=== PATIENT | female | born 1950 | race Caucasian/White ===

== ENCOUNTER → 2018-10-23 | Outpatient (CLI) | payer MEDICARE, BC ==
--- NOTE | 2018-10-24 13:05 | MM ---
Reason for exam: screening (asymptomatic). Last mammogram was performed 1 year and 2 months ago. History: Patient is postmenopausal. Benign excisional biopsy of the right breast, 1994. Physical Findings: A clinical breast exam by your physician is recommended on an annual basis and results should be correlated with mammographic findings. MG 3D Screening Mammo W/Cad Bilateral CC and MLO view(s) were taken. Prior study comparison: August 10, 2017, bilateral MG 3d screening mammo w/cad. February 03, 2016, bilateral MG screening mammo w CAD. There are scattered fibroglandular densities. There is chronic nodularity in the left breast posterior left MLO view. No significant changes when compared with prior studies. ASSESSMENT: Negative, BI-RAD 1 RECOMMENDATION: Routine screening mammogram of both breasts in 1 year.
== END | disposition home or self-care (01) ==
LOC: RADMAMWWP 16:55
PROVIDERS: ATTEND Family Medicine
DX: Z12.31 Encounter for screening mammogram for malignant neoplasm of breast (principal)
CPT/HCPCS: 77063; 77067

== ENCOUNTER 2020-02-15 21:24 | Inpatient (IN) | payer MEDICARE, BC ==
[2020-02-15] MEDS ORDERED: ASPIRIN 81 MG PO STA (21:50)
[2020-02-15] MEDS ORDERED: NITROGLYCERIN OINT 1 INCH/GM PACKET TOPICAL STA (21:50)
--- NOTE | 2020-02-15 21:52 | ED ---
Chest Pain HPI - General Chief Complaint: Chest Pain Stated Complaint: Chest Pain Time Seen by Provider: 02/15/20 21:37 Source: patient, RN notes reviewed Mode of arrival: wheelchair Limitations: no limitations - History of Present Illness Initial Comments: This is a 61-year-old female her prior history of heart attack with stents about 18 years ago states he had the onset over last 3-4 days of intermittent chest pain it seems be worse daily. Increases with walking or exertion. Day she had pain it was 8-9/10 severity is down to about 1 and 2 right now. She did take 81 mg aspirin this morning. She states the pain just hurts and she cannot describe it any other way. No nausea no vomiting no sweats no radiation. She states the pain is midsternal and feels similar to her prior episode many years ago again. MD Complaint: chest pain - Related Data Allergies Allergy/AdvReac Type Severity Reaction Status Date / Time No Known Allergies Allergy Verified 02/15/20 21:33 Review of Systems ROS Statement: Those systems with pertinent positive or pertinent negative responses have been documented in the HPI. ROS Other: All systems not noted in ROS Statement are negative. EKG Findings - EKG Results: EKG: interpreted by ERMD, sinus rhythm (Sinus rhythm rate is 70. RI interval 202, QRS 92 QT since QTC 420/453 possible inferior infarct of undetermined age also evidence of poor R-wave progression no acute ST-T wave changes however.) Past Medical History Past Medical History: Hyperlipidemia, Hypertension, Myocardial Infarction ([place]) History of Any Multi-Drug Resistant Organisms: None Reported Past Surgical History: Cholecystectomy, Heart Catheterization With Stent, Orthopedic Surgery Additional Past Surgical History / Comment(s): DnC Past Psychological History: No Psychological Hx Reported Smoking Status: Never smoker Past Alcohol Use History: None Reported Past Drug Use History: None Reported General Exam - General Exam Comments Initial Comments: This is a well-developed well-nourished awake alert oriented 3 female Limitations: no limitations General appearance: alert, in no apparent distress Head exam: Present: atraumatic, normocephalic, normal inspection Eye exam: Present: normal appearance, PERRL, EOMI. Absent: scleral icterus, conjunctival injection, periorbital swelling ENT exam: Present: normal exam, mucous membranes moist Neck exam: Present: normal inspection. Absent: tenderness, meningismus, lymphadenopathy Respiratory exam: Present: normal lung sounds bilaterally. Absent: respiratory distress, wheezes, rales, rhonchi, stridor Cardiovascular Exam: Present: regular rate, normal rhythm, normal heart sounds. Absent: systolic murmur, diastolic murmur, rubs, gallop, clicks GI/Abdominal exam: Present: soft, normal bowel sounds. Absent: distended, tenderness, guarding, rebound, rigid Extremities exam: Present: normal inspection, full ROM, normal capillary refill. Absent: tenderness, pedal edema, joint swelling, calf tenderness Back exam: Present: normal inspection Neurological exam: Present: alert, oriented X3, CN II-XII intact Psychiatric exam: Present: normal affect, normal mood Skin exam: Present: warm, dry, intact, normal color. Absent: rash Course Vital Signs 02/15/20 21:28 Temperature 97.5 F L Pulse Rate 71 Respiratory 16 Rate Blood Pressure 195/91 O2 Sat by Pulse 98 Oximetry - Reevaluation(s) Reevaluation #1: 02/15/20 22:59 Reevaluation patient is gone. Chest Pain MDM - MDM I did review the imaging and report no acute findings I did discuss the findings the patient family as well as with Dr. Cote. Patient will be admitted cardiology consultation. Critical Care Time Critical Care Time: Yes Critical Care Time: 31 minutes of critical care time which includes initial presentation with history physical labs x-rays several reevaluation the patient discussed with the admitting physician admission orders and documentation of the above Disposition Clinical Impression: Chest pain, Unstable angina pectoris Disposition: ADMITTED IP TO THIS [facility] Condition: Fair Referrals: Alexx Rock MD [Primary Care Provider] - 1-2 days
[2020-02-15 22:21] LABS: Basophils % (A) 1 %; Eosinophils # (A) 0.3 k/uL (0-0.7); Eosinophils % (A) 3 %; HCT 36.3 % (34.0-46.0); Lymphocytes # (A) 1.8 k/uL (1.0-4.8); Lymphocytes % (A) 23 %; MCH 32.5 pg (25.0-35.0); MCHC 33.1 g/dL (31.0-37.0); MCV 98.2 fL (80.0-100.0); Mean Platelet Volume 7.4; Monocytes # (A) 0.4 k/uL (0-1.0); Monocytes % (A) 5 %; Neutrophils % (A) 66 %; Platelet Count 321 k/uL (150-450); RBC 3.69 m/uL (3.80-5.40); RDW 12.2 % (11.5-15.5); WBC 7.6 k/uL (3.8-10.6)
[2020-02-15 22:36] LABS: Albumin 4.7 g/dL (3.5-5.0); Calcium 10.2 mg/dL (8.4-10.2); Magnesium 1.7 mg/dL (1.6-2.3); Total Bilirubin 0.3 mg/dL (0.2-1.3)
[2020-02-15 22:43] LABS: Potassium 3.7 mmol/L (3.5-5.1); Total Protein 7.5 g/dL (6.3-8.2)
--- NOTE | 2020-02-15 22:45 | XR ---
EXAMINATION TYPE: XR chest 2V DATE OF EXAM: 02/15/2020 COMPARISON: NONE HISTORY: Chest pain Heart and mediastinum are normal. Lungs are clear of infiltrate. There is no pleural effusion. Thora cic aorta is atheromatous. Bony thorax is intact. IMPRESSION: No active cardiopulmonary disease. Normal heart.
[2020-02-15 22:50] LABS: Partial Thromboplastin Time 24.6 sec (22.0-30.0); Prothrombin Time 10.4 sec (9.0-12.0)
[2020-02-15] MEDS ORDERED: HEPARIN SODIUM,PORCINE 5,000 UNIT/ML 1 ML VIAL IV ONE (23:06)
[2020-02-15] MEDS ORDERED: NITROGLYCERIN SL TABS 0.4 MG TAB SUBLINGUAL PRN (23:06)
[2020-02-15] MEDS ORDERED: HEPARIN SOD,PORK IN 0.45% NACL 25,000 UNIT in 0.45% NACL 1 250ML.BAG IV SCH (23:15)
[2020-02-16] MEDS: NITROGLYCERIN OINT 1 INCH/GM PACKET TOPICAL SCH ×3 (00:43→12:51)
[2020-02-16 06:43] LABS: Cholesterol 143 mg/dL (<200); HDL Cholesterol 55 mg/dL (40-60); LDL Cholesterol,Calculated 60 mg/dL (0-99); Triglycerides 140 mg/dL (<150)
[2020-02-16] MEDS ORDERED: ASPIRIN 325 MG TAB PO SCH (09:00)
[2020-02-16] MEDS ORDERED: ALPRAZolam 0.25 MG TAB PO PRN (10:01)
[2020-02-16] MEDS ORDERED: SODIUM CHLORIDE 0.9% 1,000 ML in EMPTY BAG 1 BAG IV ONE (10:01)
[2020-02-16] MEDS ORDERED: ASPIRIN 325 MG TAB PO STA (10:01)
[2020-02-16] MEDS ORDERED: NITROGLYCERIN SL TABS 0.4 MG TAB SUBLINGUAL PRN ×2 (10:01→14:12)
[2020-02-16] MEDS ORDERED: ALPRAZolam 0.5 MG TAB PO PRN (10:01)
[2020-02-16] MEDS ORDERED: ATORVASTATIN 80 MG TAB PO STA (10:01)
--- NOTE | 2020-02-16 10:23 | P.CRDCN ---
History of Present Illness Consult date: 02/16/20 Requesting physician: Stephan Cochran Reason for Consult (text): Chest Pain, unstable angina Chief complaint: chest pain, shortness of breath History of present illness: This is a pleasant 69-year-old female patient who follows with Dr. Joshi in the office. She has a history of CAD with prior RI and stents about 18 years ago, hypertension, hyperlipidemia. She is a nonsmoker. He presented to the emergency department with progressively worsening symptoms of chest pain and shortness of breath with minimal activity. Symptoms initially began around early November, prior to COVID-19 restrictions being placed. This has progressively been getting worse and occurring with less and less activity. Symptoms are similar to what she experienced with her RI many years ago but at that time she did not have chest discomfort only shortness of breath. Chest x- ray on admission showed no active cardiopulmonary disease, normal heart. EKG on admission shows sinus rhythm, evidence of prior RI and T-wave inversion in leads 3 and aVF. Laboratory values were reviewed and showed a white blood cell count of 7600, hemoglobin 12.0, platelet count 321, potassium 3.7, BUN 27, creatinine 0.95, NT proBNP of 414 and troponins of 0.018 and 0.051. Blood pressure has been elevated she is afebrile. She verbalizes having vague discomfort Tonight but this morning is feeling well. She's been initiated on a heparin drip and has nitro paste in place. She does complain of a headache. She denies any complaints of dizziness or lightheadedness. Complains of very occasional palpitations in the past. Past Medical History Past Medical History: Hyperlipidemia, Hypertension, Myocardial Infarction (RI) Last Myocardial Infarction Date:: 2001 History of Any Multi-Drug Resistant Organisms: None Reported Past Surgical History: Cholecystectomy, Heart Catheterization With Stent, Orthopedic Surgery Additional Past Surgical History / Comment(s): DnC Date of Last Stent Placement:: 2001 Past Psychological History: No Psychological Hx Reported Smoking Status: Never smoker Past Alcohol Use History: None Reported Past Drug Use History: None Reported Medications and Allergies Allergies Allergy/AdvReac Type Severity Reaction Status Date / Time No Known Allergies Allergy Verified 02/15/20 21:33 Physical Exam Vitals: Vital Signs Temp Pulse Pulse Resp BP BP BP 02/16/20 08:10 97.4 F L 80 14 156/84 02/16/20 03:37 98 F 79 15 166/81 02/16/20 00:00 98.3 F 69 17 179/86 02/15/20 23:51 78 18 159/70 02/15/20 23:06 02/15/20 23:00 70 17 172/77 02/15/20 21:28 97.5 F L 71 16 195/91 Pulse Ox 02/16/20 08:10 98 02/16/20 03:37 97 02/16/20 00:00 98 02/15/20 23:51 99 02/15/20 23:06 99 02/15/20 23:00 97 02/15/20 21:28 98 Intake and Output 02/15/20 02/16/20 02/16/20 22:59 06:59 14:59 Intake Total 57.915 Balance 57.915 Intake: Intake, IV Titration 57.915 Amount Heparin Sod,Pork in 0.45% 57.915 NaCl 25,000 unit In 0.45 % NaCl 1 250ml.bag @ 12 UNITS/KG/HR 8.709 mls/hr IV .Q24H [facility] Rx#: [id number] Oral 0 Other: Voiding Method Toilet # Voids 1 Weight 72.575 kg 75.795 kg PHYSICAL EXAMINATION: This is a 69-year-old female in no apparent distress at the time of my examination. VITAL SIGNS: Blood pressure 156/84, heart rate 80, respirations 14, temp 97.4 degrees Fahrenheit. Patient is 98% on room air. HEENT: Head is atraumatic, normocephalic. Pupils are equal, round. Sclerae anicteric. Conjunctivae are clear. Mucous membranes of the mouth are moist. Neck is supple. There is no elevated jugular venous pressure. No carotid bruit is heard. CHEST EXAMINATION: Lungs are clear to auscultation. No chest wall tenderness is noted on palpation or with deep breathing. HEART EXAMINATION: Heart regular regular, positive S1 and S2. No S3. No S4. No clicks, rubs or murmurs. ABDOMEN: Soft, nontender. Bowel sounds are heard. No organomegaly noted. EXTREMITIES: 2+ peripheral pulses with no evidence of peripheral edema and no calf tenderness noted. NEUROLOGIC EXAMINATION: Patient is awake, alert and oriented x3. Results 02/15/20 22:02 02/15/20 22:02 Cardiac Enzymes 02/15/20 02/15/20 02/16/20 Range/Units 22:02 22:02 04:08 AST 32 (14-36) U/L Troponin I 0.018 0.051 H* (0.000-0.034) ng/mL Coagulation 02/15/20 02/16/20 Range/Units 22:02 05:46 PT 10.4 (9.0-12.0) sec APTT 24.6 79.8 H (22.0-30.0) sec Lipids 02/16/20 Range/Units 05:46 Triglycerides 140 (<150) mg/dL Cholesterol 143 (<200) mg/dL HDL Cholesterol 55 (40-60) mg/dL CBC 02/15/20 Range/Units 22:02 WBC 7.6 (3.8-10.6) k/uL RBC 3.69 L (3.80-5.40) m/uL Hgb 12.0 (11.4-16.0) gm/dL Hct 36.3 (34.0-46.0) % Plt Count 321 (150-450) k/uL Comprehensive Metabolic Panel 02/15/20 Range/Units 22:02 Sodium 137 (137-145) mmol/L Potassium 3.7 (3.5-5.1) mmol/L Chloride 101 (98-107) mmol/L Carbon Dioxide 28 (22-30) mmol/L BUN 27 H (7-17) mg/dL Creatinine 0.95 (0.52-1.04) mg/dL Glucose 136 H (74-99) mg/dL Calcium 10.2 (8.4-10.2) mg/dL AST 32 (14-36) U/L ALT 22 (4-34) U/L Alkaline Phosphatase 82 (38-126) U/L Total Protein 7.5 (6.3-8.2) g/dL Albumin 4.7 (3.5-5.0) g/dL Current Medications Generic Name Dose Route Start Last Admin Trade Name Freq PRN Reason Stop Dose Admin Aspirin 325 mg 02/16/20 09:00 Aspirin PO DAILY PAT Heparin Sodium/Sodium Chloride 250 mls @ 8.709 mls/hr 02/15/20 23:15 02/16/20 06:23 25,000 unit/ Sodium Chloride IV 10 units/kg/hr .Q24H PAT 7.258 mls/hr Titration Protocol 12 UNITS/KG/HR Nitroglycerin 0.4 mg 02/15/20 23:06 Nitrostat SUBLINGUAL Q5M PRN Chest Pain Nitroglycerin 1 inch 02/16/20 00:00 02/16/20 05:21 Nitro-Bid Oint TOPICAL 1 inch Q6HR PAT Administration Intake and Output 02/15/20 02/16/20 02/16/20 22:59 06:59 14:59 Intake Total 57.915 Balance 57.915 Intake: Intake, IV Titration 57.915 Amount Heparin Sod,Pork in 0.45% 57.915 NaCl 25,000 unit In 0.45 % NaCl 1 250ml.bag @ 12 UNITS/KG/HR 8.709 mls/hr IV .Q24H [facility] Rx#: [id number] Oral 0 Other: Voiding Method Toilet # Voids 1 Weight 72.575 kg 75.795 kg 02/15/20 22:02 02/15/20 22:02 EKG Interpretations (text) Sinus rhythm with evidence of prior RI in the inferior and anterior leads, T- wave inversion in leads 3 and aVF Assessment and Plan Assessment: #1 NSTEMI with symptoms of chest pain and dyspnea on exertion, troponin 0.018 and 0.051 #2 history of CAD with prior RI and stents #3 hypertension, uncontrolled #4 hyperlipidemia adequately controlled Plan: From wheel filler perspective, we'll obtain a 2-D echo with Doppler to assess cardiac structure and function. We will schedule the patient for cardiac catheterization for further evaluation. The risks, benefits and alternative therapies for the above-mentioned procedure and for both sedation/analgesia as well as necessary blood product administration, if indicated, as they pertain to this patient have been discussed with the patient. The patient has indicated understanding and acceptance of the risks and procedures discussed. Questions have been answered appropriately and she is agreeable to move forward with the above stated procedure. Further recommendations to follow. FIRST HELPER note has been reviewed, I agree with a documented findings and plan of care. Patient was seen and examined.
[2020-02-16] MEDS ORDERED: IV FLUID CONTINUATION 1,000 ML IV ONE (12:43)
[2020-02-16] MEDS ORDERED: LIDOCAINE 1% INJ 10MG/ML (20 ML MDV) ONE (12:50)
[2020-02-16] MEDS ORDERED: HEPARIN SODIUM 1,000 UN/ML (10ML VL) ONE (12:50)
[2020-02-16] MEDS ORDERED: VERAPAMIL 2.5 MG/ML 2 ML AMP ONE (12:50)
[2020-02-16] MEDS ORDERED: fentaNYL (PF) 50 MCG/ML 2 ML AMP ONE (12:50)
[2020-02-16] MEDS ORDERED: fentaNYL (PF) 50 MCG/ML 2 ML AMP IV ONE (13:20)
[2020-02-16] MEDS: MIDAZOLAM 2 MG/2 ML VIAL IV ONE ×2 (13:23→13:30)
[2020-02-16] MEDS ORDERED: LIDOCAINE 1% INJ 10MG/ML (20 ML MDV) SQ ONE (13:24)
[2020-02-16] MEDS ORDERED: VERAPAMIL SYRINGE (5 MG/10 ML) INTRAARTER ONE ×2 (13:26→13:27)
[2020-02-16] MEDS ORDERED: TICAGRELOR 90 MG TAB ONE (13:40)
[2020-02-16] MEDS ORDERED: BIVALIRUDIN BOLUS 250 MG/50 ML IV ONE (13:40)
[2020-02-16] MEDS ORDERED: BIVALIRUDIN 250 MG in SODIUM CHLORIDE 0.9% 39 ML IV ONE (13:42)
[2020-02-16] MEDS ORDERED: TICAGRELOR 90 MG TAB PO ONE (13:42)
[2020-02-16] MEDS: NITROGLYCERIN 1000MCG/10ML SYRINGE INTRACORON ONE ×3 (13:45→14:03)
[2020-02-16] MEDS ORDERED: IOPAMIDOL-370 125ML BTL INJ ONE ×2 (13:51→14:00)
[2020-02-16] MEDS ORDERED: MAG HYDROX/AL HYDROX/SIMETH 30 ML CUP PO PRN (14:12)
[2020-02-16] MEDS ORDERED: ZOLPIDEM 5 MG TAB PO PRN (14:12)
[2020-02-16] MEDS ORDERED: RX INFO: IV CONTRAST WAS GIVEN 1 EACH MISC MISCELLANE PRN (14:12)
[2020-02-16] MEDS ORDERED: ATROPINE SULFATE 0.1 MG/ML 10ML SYRINGE IV PRN (14:12)
[2020-02-16] MEDS ORDERED: SODIUM CHLORIDE 0.9% 1,000 ML IV SCH (14:15)
[2020-02-16] MEDS: HYDROCHLOROTHIAZIDE 25 MG TAB PO SCH (14:47)
[2020-02-16] MEDS: EZETIMIBE 10 MG TAB PO SCH (15:04)
[2020-02-16] MEDS: VALSARTAN 160 MG TAB PO SCH (15:04)
--- NOTE | 2020-02-16 16:17 | ECHOF ---
Referral Reason:Chest Pain MEASUREMENTS -------- HEIGHT: 165.1 cm WEIGHT: 75.7 kg BP: 156/84 IVSd: 1.2 cm (0.6 - 1.1) LVIDd: 3.5 cm (3.9 - 5.3) LVPWd: 1.2 cm (0.6 - 1.1) IVSs: 1.5 cm LVIDs: 2.4 cm LVPWs: 1.6 cm RVIDd: 3.2 cm (< 3.3) LAESV Index (A-L): 33.69 ml/m Ao Diam: 2.7 cm (2.0 - 3.7) AV Cusp: 1.8 cm (1.5 - 2.6) EPSS: 0.1 cm MV E Best: 0.59 m/s MV DecT: 218 ms MV A Best: 0.79 m/s MV E/A Ratio: 0.75 RAP: 5.00 mmHg RVSP: 16.63 mmHg MV EF SLOPE: 49.48 mm/s (70 - 150) MV EXCURSION: 12.97 mm (> 18.000) FINDINGS -------- Sinus rhythm. This was a technically adequate study. The left ventricular size is normal. There is mild concentric left ventricular hypertrophy. Overa ll left ventricular systolic function is low-normal with, an EF between 50 - 55 %. The diastolic fi lling pattern is normal for the age of the patient {E/E'}. The right ventricle is normal in size. LA is midly dilated 29-33ml/m2. The right atrial size is normal. Interatrial and interventricular septum intact. There is mild aortic valve sclerosis without stenosis. Trace to mild aortic regurgitation. Mild mitral annular calcification present. Mild mitral regurgitation is present. Mild tricuspid regurgitation present. There is no evidence of pulmonary hypertension. The right v entricular systolic pressure, as measured by Doppler, is 16.63mmHg. There is no pulmonic regurgitation present. The aortic root size is normal. IVC Not well visulized. There is no pericardial effusion. CONCLUSIONS -------- 1. Sinus rhythm. 2. There is mild concentric left ventricular hypertrophy. 3. Overall left ventricular systolic function is low-normal with, an EF between 50 - 55 %. 4. The diastolic filling pattern is normal for the age of the patient {E/E'} 5. LA is midly dilated 29-33ml/m2. 6. There is mild aortic valve sclerosis without stenosis. 7. Trace to mild aortic regurgitation. 8. Mild mitral annular calcification present. 9. Mild mitral regurgitation is present. 10. Mild tricuspid regurgitation present. 11. There is no evidence of pulmonary hypertension. 12. There is no pericardial effusion. FLIGHT SIMULATOR TEACHER: Latasha Angeles RDCS
--- NOTE | 2020-02-16 17:22 | CC ---
CARDIAC CATHETERIZATION REPORT Ms. Aguilera is a 69-year-old female with a known history of coronary artery disease, status post stenting of her RCA in 2001 who presented with symptoms of chest discomfort and evidence of non ST-segment elevation myocardial infarction. In view of that, recommendation made regarding cardiac catheterization. The procedures, risks, and complication were discussed with the patient who is in full understanding and agreement. PROCEDURE: Patient was brought to the cath lab tech in the fasting semi-sedated state after receiving fentanyl and Benadryl and achieving moderate conscious sedated state. Using Xylocaine anesthesia and Seldinger technique, a 6-Palauan sheath was introduced in the right radial artery. Selective right and left coronary angiography performed using 5-Palauan 3.5 bend right and left Kavita catheter. Multiple views of the coronary artery including hemiaxial views were obtained. The right Kavita was used to cross the aortic valve and pressures were calculated. Following that, catheters were removed, images were reviewed. FINDINGS: LEFT MAIN: This is a large-sized vessel trifurcating in the left circumflex, ramus intermedius and left circumflex. Left main coronary artery has no evidence of high- grade stenosis/ LEFT ANTERIOR DESCENDING ARTERY: This vessel is moderate in caliber, tapers down distal third. Gives rise to a proximal diagonal branch. The proximal left anterior descending artery has intimal disease of 30-40%. The rest of the vessel has no high- grade stenosis. LEFT CIRCUMFLEX: This is a small nondominant vessel giving rise to one obtuse marginal branch that is quite tortuous but has no evidence of high-grade stenosis. RAMUS INTERMEDIUS: This vessel is moderate in caliber and has no evidence of high- grade stenosis. RIGHT CORONARY ARTERY: This vessel is large in caliber, dominant, bifurcating in distal PDA and posterolateral segment branches. The stented segment of the proximal right coronary artery is patent. There is about 20-30% plaque. The distal RCA prior to the bifurcation has a 99% stenosis haziness and slow flow in the PDA and the PLV. The rest of the vessel has mild intimal disease without any evidence of high-grade stenosis. COLLATERALS: Collateral from the left coronary system toward the right PDA. LEFT VENTRICULOGRAM: Left ventriculogram was not performed. HEMODYNAMICS: There was no gradient across the aortic valve. The left ventricular end-diastolic pressure was 12-14 mmHg. CONCLUSION: 1. Subtotally occluded distal right coronary artery. 2. Mild to moderate disease in the proximal LAD. 3. Patent stent in the proximal RCA. RECOMMENDATION: In view of the finding and anatomy, I recommend proceeding with angioplasty and stenting of the RCA. The procedures, risks, and complication were discussed with the patient who is in full understanding and agreement. MMNILDAL / IJN: [id number] /
--- NOTE | 2020-02-16 17:27 | PTCA ---
PERCUTANEOUSTRANS CORORONARY ANGIOGRAPHY Mrs. Aguilera is a 69-year-old female with a known history of coronary artery disease who presented with non ST-segment elevation myocardial infarction, was found to have subtotally occluded distal right coronary artery. In view of that, recommendation regarding angioplasty and stenting, the procedures, risks, and complication were discussed with the patient who was in full understanding and agreement. PROCEDURE: A 6-Andorran FR4 guiding catheter was introduced into the system after cannulating the right coronary artery and a 0.014 balanced medium weight J-wire was advanced across the lesion, positioned distally. Then a 2.5 x 12 mm Trek balloon was advanced and multiple inflations maximum of 10 atmospheres were done. Following that the balloon was removed and an PAULINE catheter was introduced and one run was performed was removing a white thrombotic material. Following that, a 3.5 x 23 mm Xience [place] stent was advanced, deployed and postdilated at 16 atmospheres. Following that, the balloon was removed and a 3.75 x 15 mm NC Trek balloon was advanced and one inflation at 14 atmospheres was done. After the last inflation, after appropriate wait, the balloon and the guidewire were withdrawn back in the guiding catheter. Images were obtained and repeated. Those images reveal stable successful stenting. At that point, the guiding catheter, the balloon and the guidewire were removed. The sheath was removed. Hemostasis was obtained with deployment of a TR band. There was no immediate complication. Patient was returned to the room in stable condition. Of note, the patient had chest discomfort and EKG changes that improved at the end procedure. She received Angiomax per protocol as well as oral loading dose of Brilinta. RESULTS: Successful stenting of the distal right coronary artery with reduction of stenosis from 99% to 0%. RECOMMENDATION: Patient will be continued on aspirin, Brilinta, beta blockers and statin. The importance of dual antiplatelet treatment were discussed with the patient her family and they are in full understanding and agreement. DURATION OF PROCEDURE: 44 minutes . MMODL / IJN: [id number] /
[2020-02-16] MEDS: METOPROLOL TARTRATE 50 MG TAB PO SCH ×2 (17:31→20:11)
--- NOTE | 2020-02-16 19:41 | P.HPIM ---
History of Present Illness H&P Date: 02/16/20 Chief Complaint: chest pain History of presenting complaint: This is a pleasant 69-year-old patient of Dr. Rock. Also follows with automat watcher Dr. Joshi. Chronic stable medical conditions include hypertension, hyperlipidemia, for about a week patient noticed that she was having central chest pressure. Mainly with activity. Better with rest. Does not radiate to the neck or arm. No dizziness no lightheadedness. She does notice that she gets short of breath with the episodes. Feels a bit weak tired rundown. When she presented here the troponin started to go up. Had some associated EKG changes in inferior leads. This was taken to the cardiac [facility] earlier today and underwent stenting to the right coronary artery. Review of systems: GEN.: None EYES: None HEENT: None NECK: None RESPIRATORY: None CARDIOVASCULAR: As above GASTROINTESTINAL: None GENITOURINARY: None MUSCULOSKELETAL: None LYMPHATICS: None HEMATOLOGICAL: None PSYCHIATRY: None NEUROLOGICAL: None Past medical history to include: Coronary artery disease with stent, hyperlipidemia, hypertension Social history: Lives with her . No history of smoking or alcohol. Family history: Noncontributory to presentation Physical examination: VITAL SIGNS: 97.8, 82, 16, 147/74, 98% on room air GENERAL: BMI 27.8, laying in bed, comfortable. EYES: Pupils equal. Conjunctiva normal. HEENT: External appearance of nose and ears normal, oral cavity grossly normal. NECK: JVD not raised; masses not palpable. HEART: First and second heart sounds are normal; no edema. LUNGS: Respiratory rate normal; clear to auscultation. ABDOMEN: Soft, nontender, liver spleen not palpable, no masses palpable. PSYCH: Alert and oriented x3; mood and affect normal. NEUROLOGICAL: Cranial nerves grossly intact; no facial asymmetry, power and sensation grossly intact. LYMPHATICS: No lymph nodes palpable in the axilla and neck INVESTIGATIONS, reviewed in the clinical context: White count 7.6 hemoglobin 12 platelets 321 potassium 3.7 creatinine 0.95 Troponin I 0.018, 0.051, 0.083 EKG tracing personally reviewed by me-shows flipped T waves in inferior leads Chest x-ray film personally reviewed by me-mild calcification aortic knuckle otherwise lung rose clear LDL 60 Assessment: -Acute non-Q-wave CT -Cardiac catheterization with stenting to the RCA -Known coronary artery disease a prior history of stent in 2001 -Essential hypertension -Hyperlipidemia Plan: Coronary intervention as above. Patient currently in aspirin and Lipitor's Lopressor., Diovan. Care was discussed with the patient. Questions were answered. Past Medical History Past Medical History: Hyperlipidemia, Hypertension, Myocardial Infarction (CT) Last Myocardial Infarction Date:: 2001 History of Any Multi-Drug Resistant Organisms: None Reported Past Surgical History: Cholecystectomy, Heart Catheterization With Stent, Orthopedic Surgery Additional Past Surgical History / Comment(s): DnC Date of Last Stent Placement:: 2001 Past Psychological History: No Psychological Hx Reported Smoking Status: Never smoker Past Alcohol Use History: None Reported Past Drug Use History: None Reported Medications and Allergies Home Medications Medication Instructions Recorded Confirmed Type Ezetimibe/Simvastatin [Vytorin 1 tab PO DAILY 02/16/20 02/16/20 History 10-80 mg] Loratadine [Claritin] 10 mg PO DAILY 02/16/20 02/16/20 History Metoprolol Tartrate [Lopressor] 50 mg PO TID 02/16/20 02/16/20 History Valsartan/Hydrochlorothiazide 1 tab PO DAILY 02/16/20 02/16/20 History [Valsartan-Hctz 160-25 mg Tab] Allergies Allergy/AdvReac Type Severity Reaction Status Date / Time No Known Allergies Allergy Verified 02/16/20 10:38 Physical Exam Vitals: Vital Signs Temp Pulse Pulse Resp BP BP BP 02/16/20 08:10 97.4 F L 80 14 156/84 02/16/20 03:37 98 F 79 15 166/81 02/16/20 00:00 98.3 F 69 17 179/86 02/15/20 23:51 78 18 159/70 02/15/20 23:06 02/15/20 23:00 70 17 172/77 02/15/20 21:28 97.5 F L 71 16 195/91 Pulse Ox 02/16/20 08:10 98 02/16/20 03:37 97 02/16/20 00:00 98 02/15/20 23:51 99 02/15/20 23:06 99 02/15/20 23:00 97 02/15/20 21:28 98 Intake and Output 02/15/20 02/16/20 02/16/20 22:59 06:59 14:59 Intake Total 57.915 Balance 57.915 Intake: Intake, IV Titration 57.915 Amount Heparin Sod,Pork in 0.45% 57.915 NaCl 25,000 unit In 0.45 % NaCl 1 250ml.bag @ 12 UNITS/KG/HR 8.709 mls/hr IV .Q24H PAT Rx#: [id number] Oral 0 Other: Voiding Method Toilet Toilet # Voids 1 Weight 72.575 kg 75.795 kg Results CBC & Chem 7: 02/15/20 22:02 02/15/20 22:02 Labs: Abnormal Lab Results - Last 24 Hours (Table) 02/15/20 02/15/20 02/16/20 Range/Units 22:02 22:02 04:08 RBC 3.69 L (3.80-5.40) m/uL APTT (22.0-30.0) sec BUN 27 H (7-17) mg/dL Glucose 136 H (74-99) mg/dL Troponin I 0.051 H* (0.000-0.034) ng/mL 02/16/20 Range/Units 05:46 RBC (3.80-5.40) m/uL APTT 79.8 H (22.0-30.0) sec BUN (7-17) mg/dL Glucose (74-99) mg/dL Troponin I (0.000-0.034) ng/mL Thrombosis Risk Factor Assmnt - Choose All That Apply Any of the Below Risk Factors Present?: Yes Each Factor Represents 1 point: Acute CT, Obesity (BMI >25) Other Risk Factors: Yes Each Risk Factor Represents 2 Points: Age 61-74 years Other congenital or acquired thrombophilia - If yes, enter type in comment: No Thrombosis Risk Factor Assessment Total Risk Factor Score: 4 Thrombosis Risk Factor Assessment Level: Moderate Risk
[2020-02-16] MEDS: TICAGRELOR 90 MG TAB PO SCH (20:11)
[2020-02-17 07:18] LABS: Calcium 9.4 mg/dL (8.4-10.2); Potassium 3.9 mmol/L (3.5-5.1)
[2020-02-17 08:00] VITALS: RESP 16
[2020-02-17] MEDS: TICAGRELOR 90 MG TAB PO SCH (08:17)
[2020-02-17] MEDS: VALSARTAN 160 MG TAB PO SCH (08:17)
[2020-02-17] MEDS: METOPROLOL TARTRATE 50 MG TAB PO SCH (08:17)
[2020-02-17] MEDS: EZETIMIBE 10 MG TAB PO SCH (08:17)
[2020-02-17] MEDS: HYDROCHLOROTHIAZIDE 25 MG TAB PO SCH (08:17)
[2020-02-17] MEDS ORDERED: ASPIRIN 325 MG TAB PO SCH (09:00)
[2020-02-17] MEDS ORDERED: ASPIRIN 81 MG PO SCH (09:00)
[2020-02-17] MEDS ORDERED: ATORVASTATIN 40 MG TAB PO SCH (09:00)
[2020-02-17 12:32] VITALS: BP 162/69; PULSE 81; TEMP 98.1
--- NOTE | 2020-02-17 13:03 | PN ---
PROGRESS NOTE Mrs. Aguilera is a 69-year-old female who presented with non ST-segment elevation myocardial infarction, was found to have subtotal occlusion of her distal right coronary artery. Underwent successful stenting of that vessel. She is doing well this morning. She denies any chest pain. Her breathing has been stable. She denies any dizziness or palpitation. She denies any nausea. She is ambulating without significant difficulty. She continues to be on aspirin once a day, Lipitor 40 mg daily, Zetia 10 mg daily, hydrochlorothiazide 25 mg daily, metoprolol tartrate 50 mg 3 times a day, Brilinta 90 mg twice a day, Diovan 160 mg daily. PHYSICAL EXAMINATION: Blood pressure 142/60 with a heart rate in the 80s. LUNGS: Clear. HEART: Regular rate and rhythm S1, S2. No S3. No rub. ABDOMEN: Soft nontender. EXTREMITIES: No edema. LAB DATA: Revealed a BUN and creatinine of 23 and 0.81, potassium of 3.9. Her EKG this morning revealed sinus mechanism with T-wave inversion inferiorly consistent with inferior wall ischemia. IMPRESSION: 1. Status post stenting of the right coronary artery with a non-ST elevated myocardial infarction. 2. Prior history of myocardial infarction with stenting of the proximal right coronary artery in 2001. 3. Hypertension. 4. Hyperlipidemia. RECOMMENDATION: Patient will be discharged home today and followed as an outpatient. MMODL / IJN: [id number] /
[2020-02-17 14:35] VITALS: BMI 26.9
--- NOTE | 2020-02-17 18:12 | P.DS ---
Providers Date of admission: 02/16/20 14:48 Expected date of discharge: 02/17/20 Attending physician: Stephan Cochran Consults: 02/15/20 23:06 Consult Physician Urgent Consulting Provider: Rene Roca Consult Reason/Comments: Chest pain, unstable angina Do you want consulting provider notified?: Yes, Notify in am 02/16/20 14:12 Consult Physician Routine Consulting Provider: [facility] Consult Reason/Comments: Post Interventional patient Do you want consulting provider notified?: Already Contacted Primary care physician: [facility] Course: Chief Complaint: chest pain History of presenting complaint: This is a pleasant 69-year-old patient of Dr. Rock. Also follows with oil and gas recruiter Dr. Joshi. Chronic stable medical conditions include hypertension, hyperlipidemia, for about a week patient noticed that she was having central chest pressure. Mainly with activity. Better with rest. Does not radiate to the neck or arm. No dizziness no lightheadedness. She does notice that she gets short of breath with the episodes. Feels a bit weak tired rundown. When she presented here the troponin started to go up. Had some associated EKG changes in inferior leads. underwent stenting to the right coronary artery. Today-feeling well. Comfort. Up and about. No chest pain no shortness of breath. Cleared by cardiology for discharge. Consultation: Dr. Joshi from cardiology Physical examination: VITAL SIGNS: 98.1, 81, 16, 160-69, 95% room air GENERAL: Sitting up, comfortable EYES: Pupils equal. Conjunctiva normal. HEENT: External appearance of nose and ears normal, oral cavity grossly normal. NECK: JVD not raised; masses not palpable. HEART: First and second heart sounds are normal; no edema. LUNGS: Respiratory rate normal; clear to auscultation. ABDOMEN: Soft, nontender, liver spleen not palpable, no masses palpable. PSYCH: Alert and oriented x3; mood and affect normal. INVESTIGATIONS, reviewed in the clinical context: Potassium 3.9 creatinine 0.81 Previous testing White count 7.6 hemoglobin 12 platelets 321 potassium 3.7 creatinine 0.95 Troponin I 0.018, 0.051, 0.083 EKG tracing personally reviewed by me-shows flipped T waves in inferior leads Chest x-ray film personally reviewed by me-mild calcification aortic knuckle otherwise lung rose clear LDL 60 Assessment: -Acute non-Q-wave NM -Cardiac catheterization with stenting to the RCA -Known coronary artery disease a prior history of stent in 2001 -Essential hypertension -Hyperlipidemia Disposition: Home Patient Condition at Discharge: Fair Plan - Discharge Summary Discharge Rx Participant: No New Discharge Prescriptions: New Aspirin 81 mg PO DAILY chew Ticagrelor [Brilinta] 90 mg PO BID #180 tab Nitroglycerin Sl Tabs [Nitrostat] 0.4 mg SUBLINGUAL Q5M PRN #25 tab PRN Reason: Chest Pain Continue Metoprolol Tartrate [Lopressor] 50 mg PO TID Loratadine [Claritin] 10 mg PO DAILY Ezetimibe/Simvastatin [Vytorin 10-80 mg] 1 tab PO DAILY Valsartan/Hydrochlorothiazide [Valsartan-Hctz 160-25 mg Tab] 1 tab PO DAILY Discharge Medication List Ezetimibe/Simvastatin [Vytorin 10-80 mg] 1 tab PO DAILY 02/16/20 [History] Loratadine [Claritin] 10 mg PO DAILY 02/16/20 [History] Metoprolol Tartrate [Lopressor] 50 mg PO TID 02/16/20 [History] Valsartan/Hydrochlorothiazide [Valsartan-Hctz 160-25 mg Tab] 1 tab PO DAILY 02/16/20 [History] Aspirin 81 mg PO DAILY chew 02/17/20 [Rx] Nitroglycerin Sl Tabs [Nitrostat] 0.4 mg SUBLINGUAL Q5M PRN #25 tab 02/17/20 [Rx] Ticagrelor [Brilinta] 90 mg PO BID #180 tab 02/17/20 [Rx] Follow up Appointment(s)/Referral(s): Pedro Joshi MD [STAFF PHYSICIAN] - 1 Week (Office is closed, please call Tuesday am to schedule follow up appointment.) Alexx Rock MD [Primary Care Provider] - 1-2 days (Office is closed, please call Tuesday am to schedule follow up appointment.) Patient Instructions/Handouts: *Surgery [facility] - After Heart Catheterization - Still Worker Helper Instructions, Angina (GEN) Discharge Disposition: HOME SELF-CARE
== END 2020-02-17 14:21 | disposition home or self-care (01) | DRG 247 ==
LOC: EC 21:24 → 1SOBS 23:08 → 3SCARD 02-16 14:20 → OBSVTOIN 02-16 14:48
PROVIDERS: ADMIT Hospitalist; ATTEND Hospitalist
PROC: 027034Z Dilation of Coronary Artery, One Artery with Drug-eluting Intraluminal Device, Percutaneous Approach (ICD-10-PCS; principal; 2020-02-16 13:00)
PROC: B2111ZZ Fluoroscopy of Multiple Coronary Arteries using Low Osmolar Contrast (ICD-10-PCS; 2020-02-16 13:00)
PROC: 4A023N7 Measurement of Cardiac Sampling and Pressure, Left Heart, Percutaneous Approach (ICD-10-PCS; 2020-02-16 13:00)
DX: I21.4 Non-ST elevation (NSTEMI) myocardial infarction (principal); E78.5 Hyperlipidemia, unspecified; I10 Essential (primary) hypertension; I25.110 Atherosclerotic heart disease of native coronary artery with unstable angina pectoris; I25.2 Old myocardial infarction; Z90.49 Acquired absence of other specified parts of digestive tract; Z95.5 Presence of coronary angioplasty implant and graft; Z79.899 Other long term (current) drug therapy; Z11.59 Encounter for screening for other viral diseases
CPT/HCPCS: 36415; 71046; 80048; 80053; 80061; 82550; 83735; 83880; 84484; 85025; 85347; 85610; 85730; 93005; 93306; 93458; 96374; 99291